=== PATIENT | male | born 1960 | race Caucasian/White ===

== ENCOUNTER 2021-09-06 14:11 | Inpatient (IN) | payer OTHER ==
[2021-09-06] MEDS ORDERED: ONDANSETRON *ODT* 4 MG TABLET SL PRN (15:18)
[2021-09-06] MEDS ORDERED: MAGNESIUM CITRATE 300 ML BOTTLE PO PRN (15:18)
[2021-09-06] MEDS ORDERED: METHOCARBAMOL 500 MG TABLET PO PRN (15:18)
[2021-09-06] MEDS ORDERED: IBUPROFEN 400 MG TABLET (FP) PO PRN (15:18)
[2021-09-06] MEDS ORDERED: MAGNESIUM HYDROX 2400MG/30ML ORAL SUSPENSION 30 ML CUP PO PRN (15:18)
[2021-09-06] MEDS ORDERED: NICOTINE 10 MG CARTRIDGE (INHALER) IH PRN (15:18)
[2021-09-06] MEDS ORDERED: BISMUTH SUBSALICYLATE 524 MG/30 ML PO PRN (15:18)
[2021-09-06] MEDS ORDERED: MAG HYDROX/AL HYDROX/SIMETH 30 ML UNIT-DOSE CUP PO PRN (15:18)
[2021-09-06] MEDS ORDERED: ACETAMINOPHEN 325 MG TABLET (FP) PO PRN ×2 (15:18)
[2021-09-06] MEDS ORDERED: diazePAM 5 MG TABLET PO PRN (15:18)
[2021-09-06] MEDS ORDERED: MENTHOL/PHENOL 1 EACH UD MM PRN (15:18)
[2021-09-06 15:28] VITALS: BMI 24.8
[2021-09-06] MEDS ORDERED: ALBUTEROL SO4 HFA INHALER IH PRN (18:27)
[2021-09-06] MEDS: hydrOXYzine PAMOATE 25 MG CAPSULE (FP) PO SCH ×2 (18:44→22:27)
[2021-09-06] MEDS: diazePAM 5 MG TABLET PO SCH ×2 (18:45→22:25)
[2021-09-06] MEDS: THIAMINE HCL 100 MG TABLET (FP) PO SCH (22:25)
[2021-09-06] MEDS: traZODone HCL 50 MG TABLET (FP) PO SCH (22:25)
[2021-09-06] MEDS: BUDESONIDE/FORMETEROL FUMARATE 160/4.5 mcg INHALER IH SCH (22:25)
[2021-09-06] MEDS: MELATONIN 5 MG TABLETS PO SCH (22:25)
[2021-09-06] MEDS: CIPROFLOXACIN HCL 0.3% OPHTH 2.5ML BOTTLE NR SCH (23:18)
[2021-09-07] MEDS: diazePAM 5 MG TABLET PO SCH ×4 (06:05→22:18)
[2021-09-07] MEDS: hydrOXYzine PAMOATE 25 MG CAPSULE (FP) PO SCH ×5 (06:05→22:18)
[2021-09-07 10:20] LABS: HEMOGLOBIN 10.5 GM/dL (11.7-16.9); MCH 34.1 pg (25.7-33.7); MEAN CELL VOLUME 100.4 fl (80-96); MEAN PLT VOLUME 9.3 fl (7.5-11.1); PLATELET COUNT 189 10^3/uL (134-434); RBC 3.09 M/mm3 (4.00-5.60); RDW 15.3 % (11.9-15.9); WHITE BLOOD COUNT 7.4 K/mm3 (4.0-10.0)
[2021-09-07 10:31] LABS: ALBUMIN 3.3 g/dl (3.4-5.0); CALCIUM 8.4 mg/dL (8.5-10.1)
[2021-09-07 10:35] LABS: CREATININE 0.8 mg/dL (0.55-1.3)
[2021-09-07 10:37] LABS: BILIRUBIN,TOTAL 0.9 mg/dL (0.2-1); TOT PROT 5.8 g/dl (6.4-8.2)
[2021-09-07] MEDS: PRENATAL VITAMINS W/ FOLIC ACID TABLET (FP) PO SCH (10:37)
[2021-09-07] MEDS: BUDESONIDE/FORMETEROL FUMARATE 160/4.5 mcg INHALER IH SCH ×2 (10:37→22:20)
[2021-09-07] MEDS: DEXAMETH OT SCH (11:00)
[2021-09-07] MEDS: CIPROFLOXACIN HCL OT SCH (11:00)
[2021-09-07] MEDS: [UNRECOGNIZED DRUG - OTHER] OT SCH (11:00)
[2021-09-07] MEDS: CIPROFLOXACIN HCL 0.3% OPHTH 2.5ML BOTTLE NR SCH (11:00)
[2021-09-07] MEDS ORDERED: FLU VACC QS2021-22(6MOS UP)/PF 60 MCG/0.5 ML SYRINGE IM ONE (12:00)
[2021-09-07] MEDS: OFLOXACIN 0.3% OTIC SOLUTION 5 ML BOTTLE AD SCH (12:37)
[2021-09-07] MEDS: traZODone HCL 50 MG TABLET (FP) PO SCH (22:19)
[2021-09-07] MEDS: MELATONIN 5 MG TABLETS PO SCH (22:19)
[2021-09-07] MEDS: THIAMINE HCL 100 MG TABLET (FP) PO SCH (22:19)
[2021-09-08] MEDS: diazePAM 5 MG TABLET PO SCH ×3 (05:40→22:22)
[2021-09-08] MEDS: hydrOXYzine PAMOATE 25 MG CAPSULE (FP) PO SCH ×5 (05:40→22:22)
[2021-09-08] MEDS: BUDESONIDE/FORMETEROL FUMARATE 160/4.5 mcg INHALER IH SCH ×2 (11:50→22:22)
[2021-09-08] MEDS: NICOTINE 14 MG/24 HOURS TOPICAL PATCH TD SCH (11:50)
[2021-09-08] MEDS: PRENATAL VITAMINS W/ FOLIC ACID TABLET (FP) PO SCH (11:51)
[2021-09-08] MEDS: FLUoxetine HCL 10 MG CAPSULE PO SCH (11:53)
[2021-09-08] MEDS: OFLOXACIN 0.3% OTIC SOLUTION 5 ML BOTTLE AD SCH (11:54)
[2021-09-08] MEDS ORDERED: PENICILLIN G BENZATHINE 2,400,000 UNIT/4 ML PFS IM ONE (13:36)
[2021-09-08] MEDS ORDERED: SUVOREXANT 5 MG TABLET PO PRN (22:00)
[2021-09-08] MEDS: THIAMINE HCL 100 MG TABLET (FP) PO SCH (22:22)
[2021-09-08] MEDS: MELATONIN 5 MG TABLETS PO SCH (22:22)
[2021-09-08] MEDS: OLANZapine 2.5 MG TABLET PO SCH (22:22)
[2021-09-09] MEDS: hydrOXYzine PAMOATE 25 MG CAPSULE (FP) PO SCH ×5 (05:46→22:27)
[2021-09-09] MEDS: diazePAM 5 MG TABLET PO SCH ×2 (05:47→17:58)
[2021-09-09] MEDS: PRENATAL VITAMINS W/ FOLIC ACID TABLET (FP) PO SCH (10:34)
[2021-09-09] MEDS: BUDESONIDE/FORMETEROL FUMARATE 160/4.5 mcg INHALER IH SCH ×2 (10:34→22:27)
[2021-09-09] MEDS: FLUoxetine HCL 10 MG CAPSULE PO SCH (10:34)
[2021-09-09] MEDS: NICOTINE 14 MG/24 HOURS TOPICAL PATCH TD SCH (10:35)
[2021-09-09] MEDS: OFLOXACIN 0.3% OTIC SOLUTION 5 ML BOTTLE AD SCH (10:35)
[2021-09-09] MEDS: THIAMINE HCL 100 MG TABLET (FP) PO SCH (22:27)
[2021-09-09] MEDS: MELATONIN 5 MG TABLETS PO SCH (22:27)
[2021-09-09] MEDS: OLANZapine 2.5 MG TABLET PO SCH (22:27)
[2021-09-10] MEDS: hydrOXYzine PAMOATE 25 MG CAPSULE (FP) PO SCH ×2 (05:58→10:15)
[2021-09-10] MEDS ORDERED: diazePAM 5 MG TABLET PO ONE (06:00)
[2021-09-10 07:00] VITALS: TEMP 96.8
[2021-09-10 09:17] VITALS: BP 123/85; PULSE 82
[2021-09-10] MEDS: FLUoxetine HCL 10 MG CAPSULE PO SCH (10:15)
[2021-09-10] MEDS: BUDESONIDE/FORMETEROL FUMARATE 160/4.5 mcg INHALER IH SCH (10:15)
[2021-09-10] MEDS: PRENATAL VITAMINS W/ FOLIC ACID TABLET (FP) PO SCH (10:16)
[2021-09-10] MEDS: NICOTINE 14 MG/24 HOURS TOPICAL PATCH TD SCH (10:16)
[2021-09-10] MEDS: OFLOXACIN 0.3% OTIC SOLUTION 5 ML BOTTLE AD SCH (10:17)
== END 2021-09-10 11:16 | disposition other institution (70) | DRG 774 ==
LOC: YASAS 14:11 → Y3N 16:37
PROVIDERS: ADMIT Allergy & Immunology; ATTEND Allergy & Immunology
PROC: HZ2ZZZZ Detoxification Services for Substance Abuse Treatment (ICD-10-PCS; principal; 2021-09-06)
DX: F10.230 Alcohol dependence with withdrawal, uncomplicated (principal); F14.20 Cocaine dependence, uncomplicated; F12.20 Cannabis dependence, uncomplicated; F17.210 Nicotine dependence, cigarettes, uncomplicated; F31.81 Bipolar II disorder; F19.24 Other psychoactive substance dependence with psychoactive substance-induced mood disorder; G47.00 Insomnia, unspecified; A53.0 Latent syphilis, unspecified as early or late; H60.91 Unspecified otitis externa, right ear; Z86.19 Personal history of other infectious and parasitic diseases; Z86.59 Personal history of other mental and behavioral disorders; Z91.14 Patient's other noncompliance with medication regimen; Z59.00 Homelessness unspecified; Z56.0 Unemployment, unspecified
CPT/HCPCS: 36415; 71045-TC-FY; 80053; 82962; 85027; 86593; 86780; 90686; C9803; G0008; U0003; U0005

== ENCOUNTER 2021-09-10 11:23 | Inpatient (IN) | payer OTHER ==
[2021-09-10] MEDS ORDERED: LOPERAMIDE HCL 2 MG CAPSULE PO PRN (12:48)
[2021-09-10] MEDS ORDERED: ACETAMINOPHEN 325 MG TABLET (FP) PO PRN (12:48)
[2021-09-10] MEDS ORDERED: P-EPHED 60MG/TRIPROLIDI 2.5MG TABLET PO PRN (12:48)
[2021-09-10] MEDS ORDERED: guaiFENesin 200 MG/10 ML 10 ML UNIT-DOSE CUPS PO PRN (12:48)
[2021-09-10] MEDS ORDERED: MAGNESIUM CITRATE 300 ML BOTTLE PO PRN (12:48)
[2021-09-10] MEDS ORDERED: hydrOXYzine PAMOATE 25 MG CAPSULE (FP) PO PRN (12:48)
[2021-09-10] MEDS ORDERED: ALBUTEROL SO4 HFA INHALER IH PRN (12:48)
[2021-09-10] MEDS ORDERED: MAGNESIUM HYDROX 2400MG/30ML ORAL SUSPENSION 30 ML CUP PO PRN (12:48)
[2021-09-10] MEDS ORDERED: NICOTINE 10 MG CARTRIDGE (INHALER) IH PRN (12:48)
[2021-09-10] MEDS ORDERED: MENTHOL/PHENOL 1 EACH UD MM PRN (12:48)
[2021-09-10] MEDS ORDERED: MAG HYDROX/AL HYDROX/SIMETH 30 ML UNIT-DOSE CUP PO PRN (12:48)
[2021-09-10] MEDS: IBUPROFEN 400 MG TABLET (FP) PO PRN (14:09)
[2021-09-10] MEDS ORDERED: PT OWN MED DRAWER 7, Y5N ONE ×2 (20:24→23:58)
[2021-09-10] MEDS: BUDESONIDE/FORMETEROL FUMARATE 160/4.5 mcg INHALER IH SCH (21:27)
[2021-09-10] MEDS ORDERED: MELATONIN 5 MG TABLETS PO ONE (21:59)
[2021-09-10] MEDS ORDERED: THIAMINE HCL 100 MG TABLET (FP) PO SCH (22:00)
[2021-09-10] MEDS ORDERED: [UNRECOGNIZED DRUG - OTHER] OT SCH (22:00)
[2021-09-10] MEDS ORDERED: CIPROFLOXACIN HCL OT SCH (22:00)
[2021-09-10] MEDS ORDERED: DEXAMETH OT SCH (22:00)
[2021-09-10] MEDS ORDERED: MELATONIN 5 MG TABLETS PO SCH (22:00)
[2021-09-11 06:42] VITALS: BP 127/84; PULSE 76; TEMP 97.3
[2021-09-11] MEDS: IBUPROFEN 400 MG TABLET (FP) PO PRN (06:42)
[2021-09-11] MEDS: BUDESONIDE/FORMETEROL FUMARATE 160/4.5 mcg INHALER IH SCH (09:40)
[2021-09-11] MEDS ORDERED: PT OWN MED DRAWER 7, Y5N ONE (09:40)
[2021-09-11] MEDS ORDERED: NICOTINE 7 MG/24 HOURS TOPICAL PATCH TD SCH (10:00)
[2021-09-11] MEDS ORDERED: PRENATAL VITAMINS W/ FOLIC ACID TABLET (FP) PO SCH (10:00)
[2021-09-11] MEDS ORDERED: SUVOREXANT 5 MG TABLET PO PRN (11:23)
[2021-09-11] MEDS ORDERED: FLUoxetine HCL 10 MG CAPSULE PO SCH (11:30)
[2021-09-11] MEDS ORDERED: OLANZapine 2.5 MG TABLET PO SCH (22:00)
[2021-09-11] MEDS ORDERED: OFLOXACIN 0.3% OTIC SOLUTION 5 ML BOTTLE AD SCH (22:00)
== END 2021-09-11 13:39 | disposition left against medical advice (07) | DRG 770 ==
LOC: YASAS 11:23 → Y3E 11:24
PROVIDERS: ADMIT Allergy & Immunology; ATTEND Allergy & Immunology
PROC: HZ42ZZZ Group Counseling for Substance Abuse Treatment, Cognitive-Behavioral (ICD-10-PCS; principal; 2021-09-10)
DX: F10.20 Alcohol dependence, uncomplicated (principal); F14.20 Cocaine dependence, uncomplicated; F12.20 Cannabis dependence, uncomplicated; Z59.00 Homelessness unspecified

== ENCOUNTER 2021-12-04 12:38 | Inpatient (IN) | payer OTHER ==
[2021-12-04] MEDS ORDERED: chlordiazePOXIDE HCL 25 MG CAPSULE PO PRN (13:33)
[2021-12-04] MEDS ORDERED: METHOCARBAMOL 500 MG TABLET PO PRN (13:33)
[2021-12-04] MEDS ORDERED: ACETAMINOPHEN 325 MG TABLET (FP) PO PRN (13:33)
[2021-12-04] MEDS ORDERED: MAG HYDROX/AL HYDROX/SIMETH 30 ML UNIT-DOSE CUP PO PRN (13:33)
[2021-12-04] MEDS ORDERED: MENTHOL/PHENOL 1 EACH UD MM PRN (13:33)
[2021-12-04] MEDS ORDERED: ONDANSETRON *ODT* 4 MG TABLET SL PRN (13:33)
[2021-12-04] MEDS ORDERED: MAGNESIUM CITRATE 300 ML BOTTLE PO PRN (13:33)
[2021-12-04] MEDS ORDERED: NICOTINE 10 MG CARTRIDGE (INHALER) IH PRN (13:33)
[2021-12-04] MEDS ORDERED: MAGNESIUM HYDROX 2400MG/30ML ORAL SUSPENSION 30 ML CUP PO PRN (13:33)
[2021-12-04] MEDS ORDERED: BISMUTH SUBSALICYLATE 262 MG/15 ML BTL PO PRN (13:33)
[2021-12-04] MEDS ORDERED: PENICILLIN G BENZATHINE 1,200,000 UNIT/2 ML PFS IM ONE (13:37)
[2021-12-04 14:26] VITALS: BMI 25.4
[2021-12-04] MEDS ORDERED: ALBUTEROL SO4 HFA INHALER IH PRN (17:45)
[2021-12-04 17:53] LABS: HEMATOCRIT 43.9 % (35.4-49); HEMOGLOBIN 14.5 GM/dL (11.7-16.9); MCH 31.3 pg (25.7-33.7); MEAN PLT VOLUME 9.7 fl (7.5-11.1); PLATELET COUNT 225 10^3/uL (134-434); RBC 4.62 M/mm3 (4.00-5.60); RDW 13.2 % (11.9-15.9); WHITE BLOOD COUNT 10.3 K/mm3 (4.0-10.0)
[2021-12-04 18:28] LABS: ALBUMIN 4.7 g/dl (3.4-5.0)
[2021-12-04 18:30] LABS: BILIRUBIN,TOTAL 0.3 mg/dL (0.2-1); BLOOD UREA NITROGEN 16.6 mg/dL (7-18); CALCIUM 9.6 mg/dL (8.5-10.1); TOT PROT 7.8 g/dl (6.4-8.2)
[2021-12-04] MEDS: NICOTINE 14 MG/24 HOURS TOPICAL PATCH TD SCH (18:55)
[2021-12-04] MEDS: hydrOXYzine PAMOATE 25 MG CAPSULE (FP) PO SCH ×3 (18:56→22:50)
[2021-12-04] MEDS: PRENATAL VITAMINS W/ FOLIC ACID TABLET (FP) PO SCH (18:56)
[2021-12-04] MEDS: chlordiazePOXIDE HCL 25 MG CAPSULE PO SCH ×2 (18:57→22:49)
[2021-12-04] MEDS: ACETAMINOPHEN 325 MG TABLET (FP) PO PRN (18:59)
[2021-12-04 21:53] LABS: PH,URINE 5.5 (5.0-8.0); URINE APPEARANCE TURBID; URINE BILIRUBIN NEGATIVE (NEGATIVE); URINE COLOR DK YELLOW; URINE GLUCOSE (UA) NEGATIVE (NEGATIVE); URINE KETONE TRACE (NEGATIVE); URINE LEUK ESTERASE NEGATIVE (NEGATIVE); URINE NITRITE NEGATIVE (NEGATIVE); URINE PROTEIN NEGATIVE (NEGATIVE)
[2021-12-04] MEDS: THIAMINE HCL 100 MG TABLET (FP) PO SCH (22:50)
[2021-12-04] MEDS: MELATONIN 5 MG TABLETS PO SCH (22:50)
[2021-12-04] MEDS: BUDESONIDE/FORMETEROL FUMARATE 160/4.5 mcg INHALER IH SCH (22:50)
[2021-12-05] MEDS: chlordiazePOXIDE HCL 25 MG CAPSULE PO SCH ×4 (06:53→22:33)
[2021-12-05] MEDS: hydrOXYzine PAMOATE 25 MG CAPSULE (FP) PO SCH ×5 (06:53→22:32)
[2021-12-05] MEDS: BUDESONIDE/FORMETEROL FUMARATE 160/4.5 mcg INHALER IH SCH ×2 (10:25→22:32)
[2021-12-05] MEDS: NICOTINE 14 MG/24 HOURS TOPICAL PATCH TD SCH (10:25)
[2021-12-05] MEDS: PRENATAL VITAMINS W/ FOLIC ACID TABLET (FP) PO SCH (10:26)
[2021-12-05 12:55] LABS: HIV INTERPRETATION NEGATIVE (NEGATIVE)
[2021-12-05] MEDS: IBUPROFEN 400 MG TABLET (FP) PO PRN (13:15)
[2021-12-05] MEDS ORDERED: risperiDONE 0.5 MG TABLET PO SCH (22:00)
[2021-12-05] MEDS ORDERED: traZODone HCL 50 MG TABLET (FP) PO SCH (22:00)
[2021-12-05] MEDS: THIAMINE HCL 100 MG TABLET (FP) PO SCH (22:32)
[2021-12-05] MEDS: MELATONIN 5 MG TABLETS PO SCH (22:32)
[2021-12-06] MEDS: chlordiazePOXIDE HCL 25 MG CAPSULE PO SCH ×4 (06:41→22:27)
[2021-12-06] MEDS: hydrOXYzine PAMOATE 25 MG CAPSULE (FP) PO SCH ×5 (06:41→22:26)
[2021-12-06 10:19] LABS: BASO % 0.5 % (0-2.0); EOS % 1.2 % (0-4.5); HEMATOCRIT 41.6 % (35.4-49); HEMOGLOBIN 13.5 GM/dL (11.7-16.9); LYMPH % 33.2 % (8-40); MCH 30.9 pg (25.7-33.7); MCHC 32.4 g/dl (32.0-35.9); MEAN CELL VOLUME 95.2 fl (80-96); MEAN PLT VOLUME 9.5 fl (7.5-11.1); MONO % 5.8 % (3.8-10.2); NEUT % 59.3 % (42.8-82.8); PLATELET COUNT 178 10^3/uL (134-434); RBC 4.37 M/mm3 (4.00-5.60); RDW 12.9 % (11.9-15.9); WHITE BLOOD COUNT 7.3 K/mm3 (4.0-10.0)
[2021-12-06] MEDS ORDERED: PENICILLIN G BENZATHINE 2,400,000 UNIT/4 ML PFS IM ONE (10:26)
[2021-12-06] MEDS: PRENATAL VITAMINS W/ FOLIC ACID TABLET (FP) PO SCH (11:55)
[2021-12-06] MEDS: FLUoxetine HCL 10 MG CAPSULE PO SCH (11:55)
[2021-12-06] MEDS: NICOTINE 14 MG/24 HOURS TOPICAL PATCH TD SCH (11:55)
[2021-12-06] MEDS: BUDESONIDE/FORMETEROL FUMARATE 160/4.5 mcg INHALER IH SCH ×2 (11:55→22:27)
[2021-12-06] MEDS: MELATONIN 5 MG TABLETS PO SCH (22:26)
[2021-12-06] MEDS: THIAMINE HCL 100 MG TABLET (FP) PO SCH (22:26)
[2021-12-07] MEDS ORDERED: chlordiazePOXIDE HCL 10 MG CAPSULE PO PRN
[2021-12-07] MEDS: chlordiazePOXIDE HCL 10 MG CAPSULE PO SCH ×4 (05:16→22:37)
[2021-12-07] MEDS: hydrOXYzine PAMOATE 25 MG CAPSULE (FP) PO SCH ×5 (05:16→22:37)
[2021-12-07] MEDS: PRENATAL VITAMINS W/ FOLIC ACID TABLET (FP) PO SCH (10:13)
[2021-12-07] MEDS: FLUoxetine HCL 10 MG CAPSULE PO SCH (10:13)
[2021-12-07] MEDS: BUDESONIDE/FORMETEROL FUMARATE 160/4.5 mcg INHALER IH SCH ×2 (10:14→22:38)
[2021-12-07] MEDS: ACETAMINOPHEN 325 MG TABLET (FP) PO PRN (10:14)
[2021-12-07] MEDS: NICOTINE 14 MG/24 HOURS TOPICAL PATCH TD SCH (10:27)
[2021-12-07] MEDS: IBUPROFEN 400 MG TABLET (FP) PO PRN (18:30)
[2021-12-07] MEDS: MELATONIN 5 MG TABLETS PO SCH (22:37)
[2021-12-07] MEDS: THIAMINE HCL 100 MG TABLET (FP) PO SCH (22:37)
[2021-12-08] MEDS ORDERED: chlordiazePOXIDE HCL 10 MG CAPSULE PO SCH (05:00)
[2021-12-08] MEDS: hydrOXYzine PAMOATE 25 MG CAPSULE (FP) PO SCH (06:19)
[2021-12-08 09:05] VITALS: BP 109/77; PULSE 81; TEMP 97.8
[2021-12-09] MEDS ORDERED: chlordiazePOXIDE HCL 10 MG CAPSULE PO ONE (05:00)
[2021-12-10 00:06] LABS: SARS-CoV-2 NAA Not Detected (Not Detected)
== END 2021-12-08 10:10 | disposition home or self-care (01) | DRG 774 ==
LOC: YASAS 12:38 → Y3N 18:27
PROVIDERS: ADMIT Allergy & Immunology; ATTEND Allergy & Immunology
PROC: HZ2ZZZZ Detoxification Services for Substance Abuse Treatment (ICD-10-PCS; principal; 2021-12-04)
DX: F10.230 Alcohol dependence with withdrawal, uncomplicated (principal); F14.20 Cocaine dependence, uncomplicated; F12.20 Cannabis dependence, uncomplicated; F17.210 Nicotine dependence, cigarettes, uncomplicated; F31.9 Bipolar disorder, unspecified; F19.24 Other psychoactive substance dependence with psychoactive substance-induced mood disorder; F32.A Depression, unspecified; F43.10 Post-traumatic stress disorder, unspecified; G47.00 Insomnia, unspecified; Z86.11 Personal history of tuberculosis; Z86.19 Personal history of other infectious and parasitic diseases; Z91.51 Personal history of suicidal behavior; Z91.14 Patient's other noncompliance with medication regimen; Z59.00 Homelessness unspecified
CPT/HCPCS: 36415; 80053; 81003; 82947; 85025; 85027; 86593; 86780; 87389; 93005; 93010; C9803; U0003; U0005

== ENCOUNTER 2022-01-05 11:34 | Inpatient (IN) | payer OTHER ==
[2022-01-05] MEDS ORDERED: LOPERAMIDE HCL 2 MG CAPSULE PO PRN (12:36)
[2022-01-05] MEDS ORDERED: IBUPROFEN 400 MG TABLET (FP) PO PRN (12:36)
[2022-01-05] MEDS ORDERED: MAG HYDROX/AL HYDROX/SIMETH 30 ML UNIT-DOSE CUP PO PRN (12:36)
[2022-01-05] MEDS ORDERED: ONDANSETRON *ODT* 4 MG TABLET SL PRN (12:36)
[2022-01-05] MEDS ORDERED: ACETAMINOPHEN 325 MG TABLET (FP) PO PRN ×2 (12:36)
[2022-01-05] MEDS ORDERED: BISMUTH SUBSALICYLATE 524 MG/30 ML PO PRN (12:36)
[2022-01-05] MEDS ORDERED: MENTHOL/PHENOL 1 EACH UD MM PRN (12:36)
[2022-01-05] MEDS ORDERED: NICOTINE 10 MG CARTRIDGE (INHALER) IH PRN (12:36)
[2022-01-05] MEDS ORDERED: METHOCARBAMOL 500 MG TABLET PO PRN (12:36)
[2022-01-05] MEDS ORDERED: MAGNESIUM CITRATE 300 ML BOTTLE PO PRN (12:36)
[2022-01-05] MEDS ORDERED: chlordiazePOXIDE HCL 25 MG CAPSULE PO PRN (12:36)
[2022-01-05] MEDS ORDERED: MAGNESIUM HYDROX 2400MG/30ML ORAL SUSPENSION 30 ML CUP PO PRN (12:36)
[2022-01-05 12:47] VITALS: BMI 25.8
[2022-01-05] MEDS ORDERED: ALBUTEROL SO4 HFA INHALER IH PRN (15:44)
[2022-01-05 17:16] LABS: HEMATOCRIT 42.7 % (35.4-49); HEMOGLOBIN 14.6 GM/dL (11.7-16.9); MCH 31.4 pg (25.7-33.7); MCHC 34.1 g/dl (32.0-35.9); MEAN CELL VOLUME 92.1 fl (80-96); MEAN PLT VOLUME 9.2 fl (7.5-11.1); PLATELET COUNT 204 10^3/uL (134-434); RBC 4.63 M/mm3 (4.00-5.60); RDW 13.9 % (11.9-15.9); WHITE BLOOD COUNT 9.8 K/mm3 (4.0-10.0)
[2022-01-05 17:18] LABS: ALBUMIN 4.5 g/dl (3.4-5.0); CALCIUM 9.3 mg/dL (8.5-10.1)
[2022-01-05 17:19] LABS: BLOOD UREA NITROGEN 17.2 mg/dL (7-18)
[2022-01-05 17:23] LABS: BILIRUBIN,TOTAL 1.1 mg/dL (0.2-1); TOT PROT 7.8 g/dl (6.4-8.2)
[2022-01-05] MEDS: hydrOXYzine PAMOATE 25 MG CAPSULE (FP) PO SCH ×3 (18:19→23:31)
[2022-01-05] MEDS: chlordiazePOXIDE HCL 25 MG CAPSULE PO SCH ×2 (18:20→23:31)
[2022-01-05] MEDS: PRENATAL VITAMINS W/ FOLIC ACID TABLET (FP) PO SCH (18:23)
[2022-01-05] MEDS: NICOTINE 14 MG/24 HOURS TOPICAL PATCH TD SCH (18:24)
[2022-01-05] MEDS ORDERED: MELATONIN 5 MG TABLETS PO SCH (22:00)
[2022-01-05] MEDS ORDERED: THIAMINE HCL 100 MG TABLET (FP) PO SCH (22:00)
[2022-01-05] MEDS: BUDESONIDE/FORMETEROL FUMARATE 160/4.5 mcg INHALER IH SCH (23:30)
[2022-01-06] MEDS: hydrOXYzine PAMOATE 25 MG CAPSULE (FP) PO SCH ×3 (05:56→13:21)
[2022-01-06] MEDS: chlordiazePOXIDE HCL 25 MG CAPSULE PO SCH ×2 (05:56→13:20)
[2022-01-06] MEDS: PRENATAL VITAMINS W/ FOLIC ACID TABLET (FP) PO SCH (09:07)
[2022-01-06] MEDS ORDERED: FLUoxetine HCL 10 MG CAPSULE PO SCH (10:00)
[2022-01-06] MEDS: NICOTINE 14 MG/24 HOURS TOPICAL PATCH TD SCH (10:51)
[2022-01-06] MEDS: BUDESONIDE/FORMETEROL FUMARATE 160/4.5 mcg INHALER IH SCH (10:52)
[2022-01-06 15:04] VITALS: BP 108/71; PULSE 75; TEMP 96.9
[2022-01-06] MEDS ORDERED: traZODone HCL 50 MG TABLET (FP) PO SCH (22:00)
[2022-01-06] MEDS ORDERED: risperiDONE 0.5 MG TABLET PO SCH (22:00)
[2022-01-07] MEDS ORDERED: chlordiazePOXIDE HCL 25 MG CAPSULE PO SCH (05:00)
[2022-01-08] MEDS ORDERED: chlordiazePOXIDE HCL 10 MG CAPSULE PO PRN
[2022-01-08] MEDS ORDERED: chlordiazePOXIDE HCL 10 MG CAPSULE PO SCH (05:00)
[2022-01-08 14:08] LABS: SARS-CoV-2 NAA Not Detected (Not Detected)
[2022-01-09] MEDS ORDERED: chlordiazePOXIDE HCL 10 MG CAPSULE PO SCH (05:00)
[2022-01-10] MEDS ORDERED: chlordiazePOXIDE HCL 10 MG CAPSULE PO ONE (05:00)
== END 2022-01-06 16:32 | disposition left against medical advice (07) | DRG 770 ==
LOC: YASAS 11:34 → Y6N 17:19
PROVIDERS: ADMIT Allergy & Immunology; ATTEND Allergy & Immunology
PROC: HZ2ZZZZ Detoxification Services for Substance Abuse Treatment (ICD-10-PCS; principal; 2022-01-05)
DX: F10.230 Alcohol dependence with withdrawal, uncomplicated (principal); F14.20 Cocaine dependence, uncomplicated; F12.20 Cannabis dependence, uncomplicated; F17.210 Nicotine dependence, cigarettes, uncomplicated; F31.9 Bipolar disorder, unspecified; F19.24 Other psychoactive substance dependence with psychoactive substance-induced mood disorder; F43.10 Post-traumatic stress disorder, unspecified; Z56.0 Unemployment, unspecified; Z59.00 Homelessness unspecified
CPT/HCPCS: 36415; 80053; 85027; 86593; 86780; 87811; C9803; U0003; U0005

== ENCOUNTER 2022-02-09 13:58 | Inpatient (IN) | payer OTHER ==
[2022-02-09] MEDS ORDERED: LOPERAMIDE HCL 2 MG CAPSULE PO PRN (15:01)
[2022-02-09] MEDS ORDERED: BENZOCAINE/MENTHOL (CHLORASEPTIC ) LOZENGE MM PRN (15:01)
[2022-02-09] MEDS ORDERED: MAG HYDROX/AL HYDROX/SIMETH 30 ML UNIT-DOSE CUP PO PRN (15:01)
[2022-02-09] MEDS ORDERED: MAGNESIUM CITRATE 300 ML BOTTLE PO PRN (15:01)
[2022-02-09] MEDS ORDERED: DICYCLOMINE HCL 10 MG CAPSULE PO PRN (15:01)
[2022-02-09] MEDS ORDERED: ACETAMINOPHEN 325 MG TABLET (FP) PO PRN ×2 (15:01)
[2022-02-09] MEDS ORDERED: METHOCARBAMOL 500 MG TABLET PO PRN (15:01)
[2022-02-09] MEDS ORDERED: ONDANSETRON *ODT* 4 MG TABLET SL PRN (15:01)
[2022-02-09] MEDS ORDERED: IBUPROFEN 400 MG TABLET (FP) PO PRN (15:01)
[2022-02-09] MEDS ORDERED: NICOTINE 10 MG CARTRIDGE (INHALER) IH PRN (15:01)
[2022-02-09] MEDS ORDERED: chlordiazePOXIDE HCL 25 MG CAPSULE PO PRN (15:01)
[2022-02-09] MEDS ORDERED: MAGNESIUM HYDROX 2400MG/30ML ORAL SUSPENSION 30 ML CUP PO PRN (15:01)
[2022-02-09] MEDS ORDERED: BISMUTH SUBSALICYLATE 262 MG/15 ML BTL PO PRN (15:01)
[2022-02-09] MEDS ORDERED: chlordiazePOXIDE HCL 25 MG CAPSULE PO SCH (17:00)
[2022-02-09 21:16] VITALS: BMI 25.9
[2022-02-09] MEDS: MELATONIN 5 MG TABLETS PO SCH (22:32)
[2022-02-09] MEDS: THIAMINE HCL 100 MG TABLET (FP) PO SCH (22:32)
[2022-02-09] MEDS: hydrOXYzine PAMOATE 25 MG CAPSULE (FP) PO SCH ×2 (22:32→22:44)
[2022-02-09] MEDS: LIDOCAINE 5% TOPICAL PATCH TP SCH (22:33)
[2022-02-09] MEDS: chlordiazePOXIDE HCL 25 MG CAPSULE PO SCH ×2 (22:33→22:43)
[2022-02-09] MEDS: LIDOCAINE PATCH REMOVAL MC SCH (22:34)
[2022-02-10] MEDS: chlordiazePOXIDE HCL 25 MG CAPSULE PO SCH ×4 (06:45→22:35)
[2022-02-10] MEDS: hydrOXYzine PAMOATE 25 MG CAPSULE (FP) PO SCH ×5 (06:46→22:33)
[2022-02-10] MEDS: PRENATAL VITAMINS W/ FOLIC ACID TABLET (FP) PO SCH (10:52)
[2022-02-10] MEDS: LIDOCAINE 5% TOPICAL PATCH TP SCH (11:43)
[2022-02-10] MEDS ORDERED: OLANZapine 2.5 MG TABLET PO SCH (22:00)
[2022-02-10] MEDS: busPIRone HCL 5 MG TABLET PO SCH (22:33)
[2022-02-10] MEDS: THIAMINE HCL 100 MG TABLET (FP) PO SCH (22:33)
[2022-02-10] MEDS: MELATONIN 5 MG TABLETS PO SCH (22:33)
[2022-02-10] MEDS: LIDOCAINE PATCH REMOVAL MC SCH (22:34)
[2022-02-11] MEDS: hydrOXYzine PAMOATE 25 MG CAPSULE (FP) PO SCH ×4 (06:43→18:15)
[2022-02-11] MEDS: chlordiazePOXIDE HCL 25 MG CAPSULE PO SCH ×3 (06:43→18:15)
[2022-02-11] MEDS ORDERED: FLUoxetine HCL 10 MG CAPSULE PO SCH (10:00)
[2022-02-11] MEDS: PRENATAL VITAMINS W/ FOLIC ACID TABLET (FP) PO SCH (11:05)
[2022-02-11] MEDS: busPIRone HCL 5 MG TABLET PO SCH (11:06)
[2022-02-11] MEDS: LIDOCAINE 5% TOPICAL PATCH TP SCH (11:09)
[2022-02-11 13:44] LABS: ALBUMIN 3.1 g/dl (3.4-5.0); BLOOD UREA NITROGEN 12.4 mg/dL (7-18)
[2022-02-11 13:45] LABS: CALCIUM 8.6 mg/dL (8.5-10.1)
[2022-02-11 13:46] LABS: CREATININE 1.1 mg/dL (0.55-1.3)
[2022-02-11 13:50] LABS: TOT PROT 5.9 g/dl (6.4-8.2)
[2022-02-11 13:56] LABS: HEMATOCRIT 37.3 % (35.4-49); HEMOGLOBIN 12.8 GM/dL (11.7-16.9); MCH 32.6 pg (25.7-33.7); MCHC 34.3 g/dl (32.0-35.9); MEAN CELL VOLUME 94.9 fl (80-96); MEAN PLT VOLUME 9.1 fl (7.5-11.1); PLATELET COUNT 213 10^3/uL (134-434); RBC 3.94 M/mm3 (4.00-5.60); WHITE BLOOD COUNT 6.5 K/mm3 (4.0-10.0)
[2022-02-11] MEDS ORDERED: NICOTINE 7 MG/24 HOURS TOPICAL PATCH TD SCH (15:30)
[2022-02-11 18:17] VITALS: BP 101/62; PULSE 58; TEMP 96.9
[2022-02-11 23:11] LABS: SARS-CoV-2 NAA Not Detected (Not Detected)
[2022-02-12] MEDS ORDERED: chlordiazePOXIDE HCL 10 MG CAPSULE PO PRN
[2022-02-12] MEDS ORDERED: chlordiazePOXIDE HCL 10 MG CAPSULE PO SCH (05:00)
[2022-02-13] MEDS ORDERED: chlordiazePOXIDE HCL 10 MG CAPSULE PO SCH (05:00)
[2022-02-14] MEDS ORDERED: chlordiazePOXIDE HCL 10 MG CAPSULE PO ONE (05:00)
== END 2022-02-11 20:15 | disposition left against medical advice (07) | DRG 770 ==
LOC: YASAS 13:58 → Y3N 20:22
PROVIDERS: ADMIT Allergy & Immunology; ATTEND Allergy & Immunology
PROC: HZ2ZZZZ Detoxification Services for Substance Abuse Treatment (ICD-10-PCS; principal; 2022-02-09)
DX: F10.230 Alcohol dependence with withdrawal, uncomplicated (principal); F14.20 Cocaine dependence, uncomplicated; F12.20 Cannabis dependence, uncomplicated; F17.210 Nicotine dependence, cigarettes, uncomplicated; F31.9 Bipolar disorder, unspecified; F19.24 Other psychoactive substance dependence with psychoactive substance-induced mood disorder; F43.10 Post-traumatic stress disorder, unspecified; G47.00 Insomnia, unspecified; Z86.19 Personal history of other infectious and parasitic diseases; Z86.11 Personal history of tuberculosis; Z91.14 Patient's other noncompliance with medication regimen; Z56.0 Unemployment, unspecified; Z59.00 Homelessness unspecified
CPT/HCPCS: 36415; 80053; 85027; 86593; 86780; C9803-CS; U0003; U0005